=== PATIENT | female | born 1955 | race Caucasian/White ===

== ENCOUNTER 2025-07-08 10:28 | Outpatient (CLI) | payer MEDICARE, SELFPAY ==
--- NOTE | ~2025-07-08 | MMUS_ITS ---
EXAMINATION: MM diagnostic joao BI w theron, US breast RT limited HISTORY: Right breast discharge TECHNIQUE: 3-D tomosynthesis images of the breasts were performed and synthetic 2-D images were generated. CAD analysis was submitted and interpreted. High resolution limited right breast ultrasound was performed. COMPARISON: 01/01/2023, 04/28/2020 BREAST PARENCHYMAL COMPOSITION: There are scattered areas of fibroglandular density. FINDINGS: MAMMOGRAPHIC FINDINGS: Mammographic pattern of both breasts is unchanged. No suspicious mass lesion or distortion. No suspicious microcalcification. ULTRASOUND: Sonographic imaging of the right subareolar region is unremarkable. No mass, fluid collection, dilated ducts or intraductal mass is seen. IMPRESSION: No evidence for malignancy. No significant abnormalities are identified. BI-RADS Category 1: Negative Reviewed, dictated and finalized at [facility]. IMPRESSION: No evidence for malignancy. No significant abnormalities are identified. BI-RADS Category 1: Negative
--- OUTSIDE RECORDS SUMMARY | 2025-07-08 11:13 | XMS_ITS | Encounter Summary ---
Author Organization [facility] Address [address] [facility] [place] [address] Phone Care Team Providers Care Portrait Photographer Name Role Phone Sha Juan MD Primary Care Provider Arsh Nation MD Unavailable [phone] William Easton MD Unavailable Unavailable Reason for Visit * Reason Comments Medication Refill Encounter Details Date Type Department Care Team (Late st Contact Info) Description 10/26/2023 Refill [facility] - Primary Care - [place] [address] [place] [address] Sha Juan MD [address] [place] [address] Medication Refill Social History Tobacco Use Types Packs/Day Years Used Date Smoking Tobacco: Every Day Cigarettes 1 40 Smokeless Tobacco: Never Alcohol Use Standard Drinks/Week Comments No 0 (1 standard drink = 0.6 oz pur e alcohol) PHQ-2 Answer Date Recorded Total Score - Questions 1-9 0 01/2022 Sexually Active Control Partners Comments Not Currently Comments No Sex and Gender Information Value Date Recorded Sex Assigned at Not on file Legal Sex Female 8:33 PM CDT Gender Identity Not on file Sexual Orientation Not on file documented as of this encounter Miscellaneous Notes * Telephone Encounter - Ashley Gibbons RN - 10/28/2023 10:51 AM CST metoprolol tartrate (LOPRESSOR) 50 MG Tablet 180 Tablet 1 07/23/2023 -- Refill too soon NURSE documented in this encounter Plan of Treatment Upcoming Encounters Date Type Department Care Team (Late st Contact Info) Description 12/06/2025 10:00 AM UNIT NURSE Office Visit [facility] - Primary Care - [place] [address] [place] [address] Sha Juan MD [address] [place] [address] documented as of this encounter Visit Diagnoses Not on filedocumented in this encounter Additional Health Concerns Assessment Noted Time PHQ-9 Depression Total Score: 0 05/11/20 21 9:00 AM CDT documented as of this encounter Care Teams Portrait Photographer Relationship Specialty Start Date End Date Sha Juan MD [address] [place] [address] PCP - General Internal Medicine 03/24/18 Arsh Nation MD [address] [place] [address] Consulting Physician Obstetrics & Gynecology 03/26/19 William Eastno MD Consulting Physician Ophthalmology 12/01/24 documented as of this encounter
--- OUTSIDE RECORDS SUMMARY | 2025-07-08 11:13 | XMS_ITS | Encounter Summary ---
Author Organization [facility] Address [address] [facility] [place] [address] Phone Care Team Providers Care Guitar Player Name Role Phone Sha Juan MD Primary Care Provider Arsh Nation MD Unavailable [phone] William Easton MD Unavailable Unavailable Reason for Visit * Reason Comments Medication Refill Encounter Details Date Type Department Care Team (Late st Contact Info) Description 01/15/2024 Refill [facility] - Primary Care - [place] [address] [place] [address] Sha Juan MD [address] [place] [address] Medication Refill Social History Tobacco Use Types Packs/Day Years Used Date Smoking Tobacco: Every Day Cigarettes 1 40 Smokeless Tobacco: Never Alcohol Use Standard Drinks/Week Comments No 0 (1 standard drink = 0.6 oz pur e alcohol) PHQ-2 Answer Date Recorded Total Score - Questions 1-9 0 03/2024 Sexually Active Control Partners Comments Not Currently Comments No Sex and Gender Information Value Date Recorded Sex Assigned at Not on file Legal Sex Female 8:33 PM CDT Gender Identity Not on file Sexual Orientation Not on file documented as of this encounter Plan of Treatment Upcoming Encounters Date Type Department Care Team (Late st Contact Info) Description 12/06/2025 10:00 AM FOUNDATION RELATIONS MANAGER Office Visit [facility] - Primary Care - [place] [address] [place] [address] Sha Juan MD [address] [place] [address] documented as of this encounter Visit Diagnoses Not on filedocumented in this encounter Additional Health Concerns Assessment Noted Time PHQ-9 Depression Total Score: 0 11/22/19 10:57 AM FOUNDATION RELATIONS MANAGER documented as of this encounter Care Teams Guitar Player Relationship Specialty Start Date End Date Sha Juan MD [address] [place] [address] PCP - General Internal Medicine 03/24/18 Arsh Nation MD [address] [place] [address] Consulting Physician Obstetrics & Gynecology 03/26/19 William Easton MD Consulting Physician Ophthalmology 12/01/24 documented as of this encounter
--- OUTSIDE RECORDS SUMMARY | 2025-07-08 11:13 | XMS_ITS | Encounter Summary ---
Author Organization [facility] Address [address] [facility] [place] [address] Phone Care Team Providers Care Unionmelt Operator Name Role Phone Sha Juan MD Primary Care Provider Arsh Nation MD Unavailable [phone] William Easton MD Unavailable Unavailable Reason for Visit * Reason Comments Medication Refill Encounter Details Date Type Department Care Team (Late st Contact Info) Description 02/24/2023 Refill [facility] - Primary Care - [place] [address] [place] [address] Sha Juan MD [address] [place] [address] Medication Refill Social History Tobacco [...] Telephone Encounter - Ashley Gibbons RN - 02/25/2023 8:22 AM CDT gabapentin (NEURONTIN) 300 MG Capsule 90 Capsule 3 02/22/2023 refill too soon documented in this encounter Plan of Treatment Upcoming Encounters Date Type Department Care Team (Late st Contact Info) Description 12/06/2025 10:00 AM CIRCULAR SAW EDGE FUSER [facility] [place] [address] [place] [address] Sha Juan MD [address] [place] [address] documented as of this encounter Visit Diagnoses Not on filedocumented in this encounter Additional Health Concerns Assessment Noted Time PHQ-9 Depression Total Score: 0 05/11/20 21 9:00 AM CDT documented as of this encounter Care Teams Unionmelt Operator Relationship Specialty Start Date End Date Sha Juan MD [address] [place] [address] PCP - General Internal Medicine 03/24/18 Arsh Nation MD [address] [place] [address] Consulting Physician Obstetrics & Gynecology 03/26/19 William Easton MD Consulting Physician Ophthalmology 12/01/24 documented as of this encounter
--- OUTSIDE RECORDS SUMMARY | 2025-07-08 11:13 | XMS_ITS | Encounter Summary ---
Author Organization [facility] Address [address] [place] [address] Phone Care Team Providers Care Hydroelectric Plant Operator Name Role Phone Sha Juan MD Primary Care Provider Arsh Nation MD Unavailable [phone] William Easton MD Unavailable Unavailable Reason for Visit * Reason Comments Medication Refill Encounter Details Date Type Department Care Team (Late st Contact Info) Description 08/24/2021 [facility]ill [facility] Primary Care - [place] [address] [place] [address] Sha Juan MD [address] [place] [address] Medication Refill Social History Tobacco Use Types Packs/Day Years Used Date Smoking Tobacco: Every Day Cigarettes 2 40 Smokeless Tobacco: Never Alcohol Use Standard Drinks/Week Comments No 0 (1 standard drink = 0.6 oz pur e alcohol) PHQ-2 Answer Date Recorded Total Score - Questions 1-9 0 04/19 Sexually Active Control Partners Comments Not Currently Comments No Sex and Gender Information Value Date Recorded Sex Assigned at Not on file Legal Sex Female 8:33 PM CDT Gender Identity Not on file Sexual Orientation Not on file documented as of this encounter Miscellaneous Notes * Telephone Encounter - Ashley Gibbons RN - 08/24/2021 8:41 AM CDT glipiZIDE (GLUCOTROL XL) 5 MG TABLET SR 24 HR 90 Tablet 1 05/24/2021 Refill too soon documented in this encounter Plan of Treatment Upcoming Encounters Date Type Department Care Team (Late st Contact Info) Description 12/06/2025 10:00 AM HAIR SPECIALIST [facility] [place] [address] [place] [address] Sha Juan MD [address] [place] [address] documented as of this encounter Visit Diagnoses Not on filedocumented in this encounter Additional Health Concerns Assessment Noted Time PHQ-9 Depression Total Score: 0 05/11/20 21 9:00 AM CDT documented as of this encounter Care Teams Hydroelectric Plant Operator Relationship Specialty Start Date End Date Sha Juan MD [address] [place] [address] PCP - General Internal Medicine 03/24/18 Arsh Nation MD [address] [place] [address] Consulting Physician Obstetrics & Gynecology 03/26/19 William Easton MD Consulting Physician Ophthalmology 12/01/24 documented as of this encounter
--- OUTSIDE RECORDS SUMMARY | 2025-07-08 11:13 | XMS_ITS | Encounter Summary ---
Author Organization [facility] Address [address] [facility] [address] Phone Care Team Providers Care Bulk Station Operator Name Role Phone Sha Juan MD Primary Care Provider Arsh Nation MD Unavailable [phone] William Easton MD Unavailable Unavailable Reason for Visit * Reason Comments Medication Refill Encounter Details Date Type Department Care Team (Late st Contact Info) Description 01/26/2024 [facility]ill [facility] Primary Care - [place] [address] [place] [address] Sha Juan MD [address] [place] [address] Medication Refill Social History Tobacco [...] encounter Miscellaneous Notes * Telephone Encounter - Josue Shepard RN - 01/27/2024 8:49 AM CDT [facility] Medication Refill Standing Order for Pediatricand Adult Patients. Requested Prescriptions Pending Prescriptions Disp Refills glipiZIDE (GLUCOTROL XL) 5 MG TABLET SR 24 HR [Pharmacy Med Name: GLIPIZIDE ER 5MG TABLETS] 90 Tablet 1 Sig: TAKE 1 TABLET BY MOUTH DAILY Sulfonylureas Protocol Passed - 01/26/2024 1:24 PM Passed - Visit with relevant provider in past 6 months or upcoming 90 days Recent Visits Date Type Provider Dept 11/22/23 Office Visit Sha Juan MD [facility] Showing recent visits within past 182 days and meeting all other requirements Future Appointments No visits were found meeting these conditions. Showing future appointments within next 90 days and meeting all other requirements Passed - HgA1C on record in past 6 months HGB-A1C Date Value Ref Range Status 11/22/2023 5.7 4.0 - 6.0 % Final Passed - GFR on record in past 6 months GFR, EST. NONAFRICAN Date Value Ref Range Status 11/22/2023 >60 >=60 Final documented in this encounter Plan of Treatment Upcoming Encounters Date Type Department Care Team (Late st Contact Info) Description 12/06/2025 10:00 AM CRAB PICKER Office Visit [facility] - Primary Care - [place] [address] [place] [address] Sha Juan MD [address] [place] [address] documented as of this encounter Visit Diagnoses Diagnosis Type 2 diabetes mellitus without complication, without long-term current use of insulin documented in this encounter Additional Health Concerns Assessment Noted Time PHQ-9 Depression Total Score: 0 11/22/19 10:57 AM CRAB PICKER documented as of this encounter Care Teams Bulk Station Operator Relationship Specialty Start Date End Date Sha Juan MD [address] [place] [address] PCP - General Internal Medicine 03/24/18 Arsh Nation MD [address] [place] [address] Consulting Physician Obstetrics & Gynecology 03/26/19 William Easton MD Consulting Physician Ophthalmology 12/01/24 documented as of this encounter
--- OUTSIDE RECORDS SUMMARY | 2025-07-08 11:13 | XMS_ITS | Encounter Summary ---
Author Organization [facility] Address [address] [place] [address] Phone Care Team Providers Care Senior Examiner Name Role Phone Sha Juan MD Primary Care Provider Arsh Nation MD Unavailable [phone] William Easton MD Unavailable Unavailable Reason for Visit * Reason Comments Medication Refill Encounter Details Date Type Department Care Team (Late st Contact Info) Description 01/11/2023 Refill [facility] - Primary Care - [place] [address] [place] [address] Sha Juan MD [address] [place] [address] Medication Refill Social History Tobacco [...] on file Sexual Orientation Not on file COVID-19 Exposure Response Date Recorded In the last 10 days, have yo u been in contact with someone who was confirmed or suspected to have Coronavirus/COVID-19? No / Unsure 01/01/2023 11:28 AM CLAY TEMPERER documented as of this encounter Miscellaneous Notes * Telephone Encounter - April Larson RN - 01/14/2023 9:42 AM CST Duplicate request. TEMPERER documented in this encounter Plan of Treatment Upcoming Encounters Date Type Department Care Team (Late st Contact Info) Description 12/06/2025 10:00 AM CLAY TEMPERER Office Visit [facility] - Primary Care - [place] [address] [place] [address] Sha Juan MD [address] [place] [address] documented as of this encounter Visit Diagnoses Not on filedocumented in this encounter Additional Health Concerns Assessment Noted Time PHQ-9 Depression Total Score: 0 05/11/20 21 9:00 AM CDT documented as of this encounter Care Teams Senior Examiner Relationship Specialty Start Date End Date Sha Juan MD [address] [place] [address] PCP - General Internal Medicine 03/24/18 Arsh Nation MD [address] [place] [address] Consulting Physician Obstetrics & Gynecology 03/26/19 William Easton MD Consulting Physician Ophthalmology 12/01/24 documented as of this encounter
--- OUTSIDE RECORDS SUMMARY | 2025-07-08 11:13 | XMS_ITS | Encounter Summary ---
Author Organization [facility] Address [address] [facility] [place] [address] Phone Care Team Providers Care Student Financial Aid Manager Name Role Phone Sha Juan MD Primary Care Provider Arsh Nation MD Unavailable [phone] William Easton MD Unavailable Unavailable Reason for Visit * Reason Comments Medication Refill Encounter Details Date Type Department Care Team (Late st Contact Info) Description 12/29/2021 Refill [facility] Primary Care - [place] [address] [place] [address] Sha Juan MD [address] [place] [address] Medication Refill Social History Tobacco [...] Telephone Encounter - Ashley Gibbons RN - 12/29/2021 8:52 AM CST metoprolol tartrate (LOPRESSOR) 50 MG Tablet 180 Tablet 0 12/25/2021 Refill too soon NSTITCH SEAT JOINER documented in this encounter Plan of Treatment Upcoming Encounters Date Type Department Care Team (Late st Contact Info) Description 12/06/2025 10:00 AM CHAINSTITCH SEAT JOINER Office Visit [facility] - Primary Care - [place] [address] [place] [address] Sha Juan MD [address] [place] [address] documented as of this encounter Visit Diagnoses Not on filedocumented in this encounter Additional Health Concerns Assessment Noted Time PHQ-9 Depression Total Score: 0 05/11/20 21 9:00 AM CDT documented as of this encounter Care Teams Student Financial Aid Manager Relationship Specialty Start Date End Date Sha Juan MD [address] [place] [address] PCP - General Internal Medicine 03/24/18 Arsh Nation MD [address] [place] [address] Consulting Physician Obstetrics & Gynecology 03/26/19 William Easton MD Consulting Physician Ophthalmology 12/01/24 documented as of this encounter
--- OUTSIDE RECORDS SUMMARY | 2025-07-08 11:13 | XMS_ITS | Encounter Summary ---
Author Organization [facility] Address [address] [facility] [place] [address] Phone Care Team Providers Care Diesel Power Mechanic Name Role Phone Sha Juan MD Primary Care Provider Arsh Nation MD Unavailable [phone] William Easton MD Unavailable Unavailable Reason for Visit * Reason Comments Medication Refill Encounter Details Date Type Department Care Team (Late st Contact Info) Description 01/11/2021 Refill [facility] Primary Care - [place] [address] [place] [address] Sha Juan MD [address] [place] [address] Medication Refill Social History Tobacco Use Types Packs/Day Years Used Date Smoking Tobacco: Every Day Cigarettes 2 40 Smokeless Tobacco: Never Alcohol Use Standard Drinks/Week Comments No 0 (1 standard drink = 0.6 oz pur e alcohol) PHQ-2 Answer Date Recorded Total Score - Questions 1-9 19 02/2020 Sexually Active Control Partners Comments Not Currently Comments No Sex and Gender Information Value Date Recorded Sex Assigned at Not on file Legal Sex Female 8:33 PM CDT Gender Identity Not on file Sexual Orientation Not on file documented as of this encounter Miscellaneous Notes * Telephone Encounter - Josefa Ronquillo RN - 01/11/2021 4:14 PM MAIL CENSOR Medication approved and signed per standing order protocol. CENSOR documented in this encounter Plan of Treatment Upcoming Encounters Date Type Department Care Team (Late st Contact Info) Description 12/06/2025 10:00 AM MAIL CENSOR [facility] - Primary Care - [place] [address] [place] [address] Sha Juan MD [address] [place] [address] documented as of this encounter Visit Diagnoses Not on filedocumented in this encounter Additional Health Concerns Assessment Noted Time PHQ-9 Depression Total Score: 19 020 9:00 AM CDT documented as of this encounter Care Teams Diesel Power Mechanic Relationship Specialty Start Date End Date Sha Juan MD [address] [place] [address] PCP - General Internal Medicine 03/24/18 Arsh Nation MD [address] [place] [address] Consulting Physician Obstetrics & Gynecology 03/26/19 William Easton MD Consulting Physician Ophthalmology 12/01/24 documented as of this encounter
--- OUTSIDE RECORDS SUMMARY | 2025-07-08 11:13 | XMS_ITS | Encounter Summary ---
Author Organization [facility] Address [address] [facility] [place] [address] Phone Care Team Providers Care Autism Tutor Name Role Phone Sha Juan MD Primary Care Provider Arsh Nation MD Unavailable [phone] William Easton MD Unavailable Unavailable Reason for Visit * Reason Comments Medication Refill Encounter Details Date Type Department Care Team (Late st Contact Info) Description 03/30/2024 Refill [facility] - Primary Care - [place] [address] [place] [address] Sha Juan MD [address] [place] [address] Medication Refill Social History Tobacco [...] Telephone Encounter - Josue Shepard RN - 03/30/2024 4:02 PM CDT Medication(s) refilled and signed per [facility] Chronic Medication Refill Standing Order for Pediatricand Adult Patients. Requested Prescriptions Pending Prescriptions Disp Refills fenofibrate 160 MG Tablet [Pharmacy Med Name: FENOFIBRATE 160MG TABLETS] 90 Tablet 0 Sig: TAKE 1 TABLET BY MOUTH DAILY Fibrates Protocol Passed - 03/30/2024 3:49 PM Passed - Visit with relevant provider in past 12 months or upcoming 90 days Recent Visits Date Type Provider Dept 11/22/23 Office Visit Sha Juan MD [facility] 05/22/23 Office Visit Sha Juan MD [facility] Showing recent visits within past 365 days and meeting all other requirements Future Appointments No visits were found meeting these conditions. Showing future appointments within next 90 days and meeting all other requirements Passed - Lipid panel in past 12 months LDL Date Value Ref Range Status 11/22/2023 82 <130 mg/dL Final HDL CHOLESTEROL Date Value Ref Range Status 11/22/2023 29 (L) >40 mg/dL Final CHOLESTEROL Date Value Ref Range Status 11/22/2023 167 <200 mg/dL Final TRIGLYCERIDES Date Value Ref Range Status 11/22/2023 282 (H) <150 mg/dL Final VLDL Date Value Ref Range Status 11/22/2023 56 (H) 10 - 50 mg/dL Final CHOL/HDL RATIO Date Value Ref Range Status 11/22/2023 5.8 (H) 0.0 - 4.4 Final NON-HDL CHOLESTEROL Date Value Ref Range Status 11/22/2023 138 (H) <130 mg/dL Final documented in this encounter Plan of Treatment Upcoming Encounters Date Type Department Care Team (Late st Contact Info) Description 12/06/2025 10:00 AM RECEIVER Office Visit [facility] - Primary Care - [place] [address] [place] [address] Sha Juan MD [address] [place] [address] documented as of this encounter Visit Diagnoses Not on filedocumented in this encounter Additional Health Concerns Assessment Noted Time PHQ-9 Depression Total Score: 0 11/22/19 24 10:57 AM RECEIVER documented as of this encounter Care Teams Autism Tutor Relationship Specialty Start Date End Date Sha Juan MD [address] [place] [address] PCP - General Internal Medicine 03/24/18 Arsh Nation MD [address] [place] [address] Consulting Physician Obstetrics & Gynecology 03/26/19 William Easton MD Consulting Physician Ophthalmology 12/01/24 documented as of this encounter
--- OUTSIDE RECORDS SUMMARY | 2025-07-08 11:13 | XMS_ITS | Clinical Summary ---
Author Organization [facility]TER Address [address] [place] [address] Phone Care Team Providers Care Technical Recruiter Name Role Phone Sha Juan MD Primary Care Provider [phone] Arsh Nation MD Unavailable [phone] William Easton MD Unavailable Unavailable Allergies Active Allergy Reactions Criticality Noted Date Comments Atorvastatin Rash Latex Rash 03/28/2018 Adhesive latex Medications Cholecalcifer ol (VITAMIN D3 PO) Take by mouth daily. Active Cyanocobalami n (VITAMIN B12 PO) Take by mouth daily. Active Zinc 50 MG Capsule Take by mouth daily. Active gabapentin (NEURONTIN) 300 MG Capsule Take 1 Capsule by mouth daily. 90 Capsule 1 02/03/20 25 Active metoprolol tartrate (LOPRESSOR) 50 MG Tablet Take 1 Tablet by mouth 2 times daily. 180 Tablet 1 01/14/20 25 Active glipiZIDE (GLUCOTROL XL) 5 MG TABLET SR 24 HRIndications :Type 2 diabetes mellitus without complication, without long-term current use of insulin TAKE 1 TABLET BY MOUTH DAILY 90 Tablet 1 01/19/20 25 Active levothyroxine (SYNTHROID) 25 MCG Tablet TAKE 1 TABLET BY MOUTH DAILY 90 Tablet 1 02/02/20 25 Active metFORMIN (GLUCOPHAGE) 1000 MG Tablet TAKE 1 TABLET BY MOUTH TWICE DAILY WITH MEALS 180 Tablet 1 04/13/20 25 Active lovastatin (MEVACOR) 40 MG Tablet TAKE 1 TABLET BY MOUTH EVERY EVENING 90 Tablet 3 06/11/20 25 Active predniSONE (DELTASONE) 50 MG Tablet Take 1 Tablet by mouth daily. 5 Tablet 05/26/20 25 Active famotidine (PEPCID) 20 MG Tablet Take 1 Tablet by mouth 2 times daily as needed for Heartburn. 7 Tablet 05/26/20 25 Active EPINEPHrine (EPIPEN) 0.3 MG/0.3ML Solution Auto-injector 0.3 mL by Intramuscular route once as needed for Anaphylaxis for up to 1 dose. 0.3 mL 05/26/20 25 Active fenofibrate 160 MG Tablet TAKE 1 TABLET BY MOUTH DAILY 90 Tablet 1 07/01/20 25 Active fenofibrate 160 MG Tablet TAKE 1 TABLET BY MOUTH DAILY 90 Tablet 1 12/28/19 25 025 Discontinued Active Problems Problem Noted Date Diagnosed Date Arthritis 05/11/2021 Hypothyroidism due to acquired atrophy of thyroi d 11/18/2019 Irritable bowel syndrome wit h both constipation and diarrhea 09/18/2018 Mixed hyperlipidemia 03/28/2018 Diabetic peripheral neuropathy 03/28/2018 Type 2 diabetes mellitus wit hout complication, without long-term current use of insulin 11/18/2017 HUGGINS (nonalcoholic steatohepatitis) 05/14/2014 Overview (05/11/2021): Hepatic steatosis Hypertension, essential Resolved Problems Problem Noted Date Diagnosed Date Resolved Date Encounter for [facility] examination (Adult) 04/21/2020 04/21/2020 Rectal prolapse 09/21/2013 05/07/2018 Overview (05/07/2018): Overview: Rectal prolapse Encounters Date Type Department Care Team Description [facility] [place] [address] [place] [address] Sha Juan MD Medication Refill [facility]/03[facility] [address] [place] [address] Sha Juan MD 06/01/2025 1:20 PM CDT Lab [facility] [address] [place] [address] [facility], [address] [facility] Hypertension, essential; Type 2 diabetes mellitus without complication, without long-term current use of insulin; Mixed hyperlipidemia Discharge Disposition: Discharged to home or Selfcare 06/01/2025 11:00 AM CDT Office Visit [place] [address] [place] [id number] Sha Juan MD Hypertension, essential (Primary Dx); Mixed hyperlipidemia; Type 2 diabetes mellitus without complication, without long-term current use of insulin; Hypothyroidism due to acquired atrophy of thyroid; Diabetic peripheral neuropathy (HCC); Arthritis; Encounter for screening mammogram for breast cancer Discharge Disposition: Discharged to home or Selfcare 06/01/2025 Results Follow-Up [place] [address] [facility] [place] [address] Sha Juan MD CMP (COMPREHENSIVE METABOLIC PANEL), LIPID PANEL, HEMOGLOBIN A1C W/ ESTIMATED GLUCOSE 06/01/2025 Travel 05/26/2025 7:35 AM CDT - 05/26/2025 8:03 AM CDT Emergency [facility] Emergency [address] [place] [address] Derrick Zamora, Allergic reaction Discharge Disposition: Discharged to home or Selfcare 05/26/2025 Travel 04/27/2025 Refill [facility] [address] [place] [address] Sha Juan MD Medication Refill 04/13/2025 Refill [facility] [address] [place] [address] Sha Juan MD Medication Refill from Last 3 Months Immunizations Immunization Administration Dates Next Due Covid-19, Mrna, Lnp-s, PF, 1 00 mcg/0.5 mL Dose (Moderna) 02/07/2021,01/10/2021 Influenza Vaccine, Quadrivalent, PF 03/2024,11/09/2020,10/01/2019,09/18 Influenza, High-dose, Quadrivalent 10/09/2022, Influenza, Trivalent, Adjuvanted, PF 08/19/2024 Influenza,Split Virus,Trivalent,Injectable,PF 08/19/2024 Pneumococcal Vaccine Adult - 23 Valent 8 Pneumococcal conjugate PCV20 , polysaccharide [id number] conjugate, adjuvant, PF 05/22/2022 TDAP Vaccine 09/18/2018 Family History Medical History Relation Name Comments Chronic Obstructive Pulmonary Disease Father Diabetes Maternal Aunt Cancer Maternal Uncle 1 lung Cancer Maternal Uncle 2 lung Cancer Maternal Uncle 3 lung Alzheimer's Disease Mother Thyroid Disease Mother Cancer Other M cousin everywhere Relation Name Status Comments Father Maternal Aunt Maternal Uncle 1 Maternal Uncle 2 Maternal Uncle 3 Mother Other M cousin Social History Tobacco Use Types Packs/Day Years Used Date Smoking Tobacco: Every Day Cigarettes 1 40 Smokeless Tobacco: Never Tobacco Cessation:Ready to Q uit: No; Counseling Given: Yes Alcohol Use Standard Drinks/Week Comments No 0 (1 standard drink = 0.6 oz pur e alcohol) [facility] [employer] Answer Date Recorded In the past 12 months has Tagged, gas, oil, or water [employer] threatened to shut off services in your home? No 12/01/2024 Social Connection and Isolation Panel Answer Date Recorded In a typical week, how many times do you talk on the phone with family, friends, or neighbors? Three times a week 12/01/2024 How often do you get togethe r with friends or relatives? Three times a week 12/01/2024 How often do you attend chur ch or jew services? Never 12/01/2024 Do you belong to any clubs o r organizations such as buddhism groups, unions, fraternal or athletic groups, or school groups? No 12/01/2024 How often do you attend meet ings of the clubs or organizations you belong to? Never 12/01/2024 Are you , , di vorced, , never , or living with a partner? 12/01/2024 AUDIT-C Answer Date Recorded Q1: How often do you have a drink containing alcohol? Never 12/01/2024 Q2: How many drinks containi ng alcohol do you have on a typical day when you are drinking? Patient does not drink Q3: How often do you have si x or more drinks on one occasion? Never 12/01/2024 Overall Financial Resource Strain (CARDIA) Answe r Date Recorded How hard is it for you to pa y for the very basics like food, housing, medical care, and heating? Not hard at all 12/01/2024 PHQ-2 Answer Date Recorded Total Score - Questions 1-9 0 11/18 [facility] - Occupational Stress Questionnaire Answer Date Recorded Do you feel stress - tense, restless, nervous, or anxious, or unable to sleep at night because your mind is troubled all the time - these days? Not at all 12/01/2024 Exercise Vital Sign Answer Date Recorde d On average, how many days pe r week do you engage in moderate to strenuous exercise (like a brisk walk)? 0 days 12/01/2024 On average, how many minutes do you engage in exercise at this level? 0 min 12/01/2024 Hunger Vital Sign Answer Date Recorded Within the past 12 months, y ou worried that your food would run out before you got the money to buy more. Never true 12/01/19 25 Within the past 12 months, t he food you bought just didn't last and you didn't have money to get more. Never true 12/01/2024 PRAPARE - Transportation Answer Date Re corded In the past 12 months, has l ack of transportation kept you from medical appointments or from getting medications? No 11/18 In the past 12 months, has l ack of transportation kept you from meetings, work, or from getting things needed for daily living? No 12/01/2024 Housing Stability Vital Sign Answer Jaden e Recorded In the last 12 months, was t here a time when you were not able to pay the mortgage or rent on time? No 12/01/2024 Number of Times Moved in the Last Year Not on fi le 12/01/2024 At any time in the past 12 m [facility], were you homeless or living in a skilled nursing (including now)? No 12/01/2024 Sexually Active Control Partners Comments Not Currently Comments No Sex and Gender Information Value Date Recorded Sex Assigned at Not on file Legal Sex Female 8:33 PM CDT Gender Identity Not on file Sexual Orientation Not on file Last Filed Vital Signs Vital Sign Reading Time Taken Comments Blood Pressure 140/68 06/01/2025 11:09 AM CDT Pulse 72 06/01/2025 11:09 AM CDT Temperature 36.1 C (97 F) 06/01/2025 11:09 AM CDT Respiratory Rate 20 06/01/2025 11:09 AM CDT Oxygen Saturation 95% 06/01/2025 11:09 AM CDT Inhaled Oxygen Concentration - - Weight 70.6 kg (155 lb 9.6 oz) 06/01/2025 11:09 AM CDT Height 152.4 cm (5') 06/01/2025 11:09 AM CDT Body Mass Index 30.39 06/01/2025 11:09 AM CDT Plan of Treatment Upcoming Encounters Date Type Department Care Team (Late st Contact Info) Description 12/06/2025 10:00 AM WELL DRILL OPERATOR ROTARY DRILL Office Visit [facility] - [place] [address] [place] [address] Sha Juan MD [address] [place] [address] Health Maintenance Due Date Last Done Comments Diabetes: Foot Exam 1956 Cologuard 2001 Immunochemical Fecal Occult Blood 2001 Zoster Immunization (1 of 2) 2006 Respiratory Syncytial Virus (RSV) Immunization (Adult) (1 - Risk 60-74 years 1-dose series) 2016 Mammogram 01/01/2024 01/01/2023, 04/28/2020 SARS-COV-2 Immunization ( season) 2025 08/19/2024, 10/09/2022, 11/22/2021, Additional history exists Diabetes: Eye Exam 06/25/2025 06/25/2024, 05/25/2024 Influenza Immunization (#1) 2025 1012/2023, 08/19/2024, 11/22/2023, Additional history exists Diabetes: Hemoglobin A1c 12/02/2025 025, 12/01/2024, 05/27/2024, Additional history exists Lung Cancer Screening 01/05/2026 01/05/2025 Diabetes: Nephropathy Screening 06/01/2026 06/01/2025, 11/22/2023, 05/22/2023, Additional history exists DEXA Bone Density 01/05/2027 01/05/2025 Colonoscopy 03/20/2027 03/20/2022, 11/18, 09/04/2013 Colorectal Cancer Screening 03/20/2027 Td Immunization Every 10 Years (Adults With 1 Tdap) 09/18/2028 09/18/2018 Pneumococcal Immunization (50+ years) Completed 05/22/2022, 09/18/2018 Pneumococcal Immunization Combined Discontinued 05/22/2022, 09/18/2018 Hepatitis C Virus (HCV) Screening Completed 11/22/2023 Hepatitis B Immunization Aged Out No longer eligible based on patient's age to complete this topic Human Papillomavirus (HPV) Immunization Aged Out No longer eligible based on patient's age to complete this topic Meningococcal Immunization (ACWY) Aged Out No longer eligible based on patient's age to complete this topic Rotavirus Immunization Aged Out No lo nger eligible based on patient's age to complete this topic Procedures Procedure Name Priority Date/Time Associated Diagnosis Comments HEMOGLOBIN A1C W/ ESTIMATED GLUCOSE Routine 06/01/2025 11:38 AM CDT Type 2 diabetes mellitus without complication, without long-term current use of insulin LIPID PANEL Routine 06/01/2025 11:38 AM CDT Mixed hyperlipidemia Type 2 diabetes mellitus without complication, without long-term current use of insulin CMP (COMPREHENSIVE METABOLIC PANEL) Today 06/01/2025 11:38 AM CDT Hypertension, essential Type 2 diabetes mellitus without complication, without long-term current use of insulin BIB BONE DENSITOMETRY AXIAL SKELETON Routine 01/05/2025 11:22 AM WELL DRILL OPERATOR ROTARY DRILL Asymptomatic postmenopausal status Encounter for screening for osteoporosis CT CHEST SCREENING WO Routine 01/05/2025 10:57 AM WELL DRILL OPERATOR ROTARY DRILL Personal history of tobacco use, presenting hazards to health HM DILATED EYE EXAM 06/25/2024 1 2:00 AM CDT HEPATITIS C ANTIBODY Routine 11/22/2023 11:50 AM WELL DRILL OPERATOR ROTARY DRILL Encounter for hepatitis C screening test for low risk patient BIB SCREENING BILATERAL DIGITAL W CAD W JESSICA Routine 01/01/2023 12:01 PM WELL DRILL OPERATOR ROTARY DRILL Visit for screening mammogram from Last 3 Months or Most Recently Relevant to Health Maintenance Results * (ABNORMAL) HEMOGLOBIN A1C W/ ESTIMATED GLUCOSE (06/01/2025 11:38 AM CDT) HGB-A1C 7.1(H) 4.0 - 6.0 % 06/01/2025 1:14 PM CDT [facility] Est Average Glucose 157.1 mg/dL 06/01/2025 1:14 PM CDT [facility] Blood Venipuncture / Unknown 06/01/2025 11:38 AM CDT 06/01/2025 11:38 AM CDT Narrative [facility] - 06/01/2025 1:14 PM CDT HEMOGLOBIN A1C: DIABETIC PATIENTS: WELL-CONTROLLED: 6.2 - 7.0 INTERMEDIATE WELL-CONTROLLED: 7.0 - 9.0 POORLY-CONTROLLED: >9.0 Specimens containing greater than 5% of Hemoglobin F may result in lower than expected % HbA1C results. us Sha Juan MD CHEMISTRY ORDERABLES Traci don Result [facility] [address] [place] [address] * (ABNORMAL) LIPID PANEL (06/01/2025 11:38 AM CDT) CHOLESTEROL 170 <200 mg/dL 06/01/2025 1:05 PM CDT [facility] TRIGLYCERIDES 333(H) <150 mg/dL 06/01/2025 1:05 PM CDT [facility] HDL CHOLESTEROL 36(L) >40 mg/dL 1:05 PM CDT [facility] LDL 67 <130 mg/dL 06/01/2025 1:05 PM CDT [facility] VLDL 67(H) 10 - 50 mg/dL 06/01/2025 1:05 PM CDT [facility] CHOL/HDL RATIO 4.7(H) 0.0 - 4.4 06/01/2025 1:05 PM CDT [facility] NON-HDL CHOLESTEROL 134(H) <130 mg/dL 06/01/2025 1:05 PM CDT [facility] IS THE PATIENT REQUIRED TO BE FASTING? Yes 06/01/2025 1:05 PM CDT [facility] HAS THE PATIENT BEEN FASTING? Yes 06/01/2025 1:05 PM CDT [facility] Blood Venipuncture / Unknown 06/01/2025 11:38 AM CDT 06/01/2025 11:38 AM CDT us Sha Juan MD CHEMISTRY ORDERABLES Traci don Result [facility] [address] [place] [address] * (ABNORMAL) CMP (COMPREHENSIVE METABOLIC PANEL) (06/01/2025 11:38 AM CDT) SODIUM 142 136 - 145 mmol/L 06/01/2025 1:05 PM CDT [facility] POTASSIUM 3.9 3.5 - 5.1 mmol/L 06/01/2025 1:05 PM CDT [facility] CHLORIDE 103 98 - 107 mmol/L 06/01/2025 1:05 PM CDT [facility] CO2, VENOUS 29 22 - 30 mmol/L 06/01/2025 1:05 PM CDT [facility] ANION GAP 13.9 <18.0 mmol/L 06/01/2025 1:05 PM [facility] GLUCOSE 162(H) 70 - 99 mg/dL 06/01/2025 1:05 PM [facility] BUN 16 10 - 20 mg/dL 06/01/2025 1:05 PM [facility] CREATININE, BLOOD 0.73 0.60 - 1.00 mg/dL 06/01/2025 1:05 PM [facility] BUN/CREATININE RATIO 22(H) 12 - 20 ratio 06/01/2025 1:05 PM [facility] TOTAL PROTEIN 7.4 6.0 - 8.0 g/dL 06/01/2025 1:05 PM [facility] ALBUMIN 4.2 3.5 - 5.0 g/dL 06/01/2025 1:05 PM [facility] A/G RATIO 1.3 1.0 - 2.2 06/01/2025 1:05 PM [facility] CALCIUM 9.2 8.7 - 10.5 mg/dL 06/01/2025 1:05 PM [facility] T BILI 0.4 0.2 - 1.2 mg/dL 06/01/2025 1:05 PM [facility] SGOT (AST) 50(H) <43 U/L 06/01/2025 1:05 PM [facility] SGPT (ALT) 34 <56 U/L 06/01/2025 1:05 PM [facility] ALKALINE PHOSPHATASE 81 40 - 150 U/L 06/01/2025 1:05 PM [facility] IS THE PATIENT REQUIRED TO BE FASTING? No 06/01/2025 1:05 PM [facility] GFR, ESTIMATED >60 >=60 06/01/2025 1:05 PM [facility] Comment: Creatinine Clearance is the preferred criteria for selecting drug dose adjustments in renally impaired patients. The GFR is provided as additional pertinent clinical information. GFR is reported in mL/min/1.73 sq m. Calculation based on the Chronic Kidney Disease Epidemiology Collaboration (CKD- EPI) equation refit without adjustment for race. GFR, EST. >60 >=60 025 1:05 PM CDT [facility] GFR, EST. NONAFRICAN >60 >=60 06/01/2025 1:05 PM CDT [facility] Blood Venipuncture / Unknown 06/01/2025 11:38 AM CDT 06/01/2025 11:38 AM CDT us Sha Juan MD CHEMISTRY ORDERABLES Traci don Result [facility] [address] [place] [address] * BIB BONE DENSITOMETRY AXIAL SKELETON (01/05/2025 11:22 AM WELL DRILL OPERATOR ROTARY DRILL) Anatomical Region Laterality Modality BODY N/A Computed Radiogr aphy 01/05/2025 6:32 PM WELL DRILL OPERATOR ROTARY DRILL Impressions 01/05/2025 6:34 PM WELL DRILL OPERATOR ROTARY DRILL IMPRESSION: Normal bone mass. REFERENCE: Bone mineral density: T-Score: Normal (T-score above or = -1.0) Low bone mass (T-score between -1.0 and -2.5) replaces the previously used term osteopenia Osteoporosis (T-score = or below -2.5) Z-Score: Within the expected range for age (Z-score above -2.0) Below the expected range for age (Z-score is -2.0 or below) Please see below follow up recommendations. Medical evaluation for secondary causes of low bone mineral density may be appropriate. FRAX is a World Health Organization validated fracture risk assessment tool that calculates a person's 10 year probability of a major osteoporosis related fracture and hip fracture. According to the National Osteoporosis Foundation guidelines, postmenopausal women and men age 50 or older with low bone mass and a 10 year probability of a major osteoporosis related fracture = or greater than 20% or a 10 year probability of a hip fracture = or greater than 3% should be considered for pharmacological treatment for the prevention of osteoporosis. For further information, including treatment recommendations, please refer to the 2019 ISCD Official Positions (http://www.iscd.org) and the NOF's Clinician's Guide to Prevention and Treatment of Osteoporosis (http://www.nof.org/professionals/clinical-guidelines) Narrative 01/05/2025 6:34 PM WELL DRILL OPERATOR ROTARY DRILL EXAM DESCRIPTION: [facility] BONE DENSITOMETRY AXIAL SKELETON REASON FOR STUDY: 69 y/o year old F with given history of: Post menopausal status. History of parent with hip fracture. Personal history of smoking. 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 CLINICAL INFORMATION: Current height: 60 inches Maximum height: 60 inches Weight: 162.7 pounds Risk factors: Smoking and parent with hip fracture COMPARISON: None available FINDINGS: AP LUMBAR SPINE L1-L4: Total BMD is 1.204 g/cm2 T-score is 0.1 LEFT HIP: Total BMD is 1.169 g/cm2 T-score is 1.3 Femoral neck BMD is 1.023 g/cm2 T-score is -0.1 FRAX: FRAX not reported due to T-scores of hip, femoral neck and/or spine being at or above -1.0 (Normal). THIS IS AN ELECTRONICALLY VERIFIED FINAL REPORT 01/05/2025 6:32 PM - Electronically signed by Rachel Eller M.D. TW: TW Report ID: [id number] Reading Location: [id number] Procedure Note Rachel Eller MD - 01/05/2025 EXAM DESCRIPTION: [facility] BONE DENSITOMETRY AXIAL SKELETON REASON FOR STUDY: 69 y/o year old F with given history of: Post menopausal status. History of parent with hip fracture. Personal history of smoking. 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 CLINICAL INFORMATION: Current height: 60 inches Maximum height: 60 inches Weight: 162.7 pounds Risk factors: Smoking and parent with hip fracture COMPARISON: None available FINDINGS: AP LUMBAR SPINE L1-L4: Total BMD is 1.204 g/cm2 T-score is 0.1 LEFT HIP: Total BMD is 1.169 g/cm2 T-score is 1.3 Femoral neck BMD is 1.023 g/cm2 T-score is -0.1 FRAX: FRAX not reported due to T-scores of hip, femoral neck and/or spine being at or above -1.0 (Normal). THIS IS AN ELECTRONICALLY VERIFIED FINAL REPORT 01/05/2025 6:32 PM - Electronically signed by Rachel Eller M.D. TW: TW Report ID: [id number] Reading Location: [id number] IMPRESSION: Normal bone mass. REFERENCE: Bone mineral density: T-Score: Normal (T-score above or = -1.0) Low bone mass (T-score between -1.0 and -2.5) replaces the previously used term osteopenia Osteoporosis (T-score = or below -2.5) Z-Score: Within the expected range for age (Z-score above -2.0) Below the expected range for age (Z-score is -2.0 or below) Please see below follow up recommendations. Medical evaluation for secondary causes of low bone mineral density may be appropriate. FRAX is a World Health Organization validated fracture risk assessment tool that calculates a person's 10 year probability of a major osteoporosis related fracture and hip fracture. According to the National Osteoporosis Foundation guidelines, postmenopausal women and men age 50 or older with low bone mass and a 10 year probability of a major osteoporosis related fracture = or greater than 20% or a 10 year probability of a hip fracture = or greater than 3% should be considered for pharmacological treatment for the prevention of osteoporosis. For further information, including treatment recommendations, please refer to the 2019 ISCD Official Positions (http://www.iscd.org) and the NOF's Clinician's Guide to Prevention and Treatment of Osteoporosis (http://www.nof.org/professionals/clinical-guidelines) us Sha Juan MD IMG DEXA ORDERABLES Final Result * CT CHEST SCREENING WO (01/05/2025 10:57 AM WELL DRILL OPERATOR ROTARY DRILL) Anatomical Region Laterality Modality Chest N/A Computed Tomogra phy 01/08/2025 11:0 2 AM WELL DRILL OPERATOR ROTARY DRILL Impressions 01/08/2025 11:05 AM WELL DRILL OPERATOR ROTARY DRILL IMPRESSION: 1. Multiple lung nodules measuring up to 5 mm. 2. Mildly enlarged precarinal mediastinal lymph node. Attention on follow-up. 3. Splenomegaly. Lung-RADS category 2S: Benign appearance or behavior. Finding other than a pulmonary nodule which is potentially clinically significant. Recommendation: Low dose Screening CT of chest in 12 months. Narrative 01/08/2025 11:05 AM WELL DRILL OPERATOR ROTARY DRILL EXAM DESCRIPTION: CT CHEST SCREENING WO REASON FOR STUDY: Screening CT of the chest in a current smoker with a 60 pack year smoking history. Additional history: None. TECHNIQUE: Low dose CT scan of the chest was performed without intravenous contrast using helical scanning technique. The exam extends from the lung apices through the lung bases. Automatic exposure control was used as a dose optimization technique. NOTE: This study was performed for the specific purposes of lung cancer screening and is not an alternative to diagnostic chest CT. RADIATION DOSE: CT dose index volume (CTDIvol) = 3.62 mGy COMPARISON: None FINDINGS: SMOKING RELATED LUNG DISEASE: Minimal upper lobe emphysema. LUNG NODULES: Left apical 4 mm solid lung nodule (series 5, image 29). 3 mm anterior right upper lobe nodule (76). 4 mm lateral left lower lobe nodule (124). 3 mm right middle lobe nodule, possibly a calcified granuloma (119). A few nodules along the right minor fissure measuring up to 4 mm (101). Medial right lower lobe 4 mm subpleural nodule (82). 5 mm right lower lobe subpleural nodule (102). This appears to containing small peripheral calcification and may represent a developing granuloma. CORONARY ARTERY CALCIFICATION: Severe, predominantly affecting the LAD. OTHER: Left lower lobe calcified lung granuloma. Scarring within the right middle lobe. No focal consolidation, pneumothorax, or pleural effusion. The central airways are clear. No mediastinal mass. No axillary lymphadenopathy. Calcified left hilar node consistent with prior granulomatous disease. Mildly enlarged precarinal mediastinal node measuring 1.2 cm in short axis (series 2, image 82). The heart is normal in size. No pericardial effusion. Mild atherosclerotic calcifications of the thoracic aorta. No thoracic aortic aneurysm. No acute fractures or suspicious osseous lesions. The visualized upper abdomen is normal. THIS IS AN ELECTRONICALLY VERIFIED FINAL REPORT 01/08/2025 11:02 AM - Electronically signed by Davie Lopez M.D. KR: KR Report ID: [id number] Reading Location: [place] [address] Procedure Note Davie Lopez MD - 01/08/2025 EXAM DESCRIPTION: CT CHEST SCREENING WO REASON FOR STUDY: Screening CT of the chest in a current smoker with a 60 pack year smoking history. Additional history: None. TECHNIQUE: Low dose CT scan of the chest was performed without intravenous contrast using helical scanning technique. The exam extends from the lung apices through the lung bases. Automatic exposure control was used as a dose optimization technique. NOTE: This study was performed for the specific purposes of lung cancer screening and is not an alternative to diagnostic chest CT. RADIATION DOSE: CT dose index volume (CTDIvol) = 3.62 mGy COMPARISON: None FINDINGS: SMOKING RELATED LUNG DISEASE: Minimal upper lobe emphysema. LUNG NODULES: Left apical 4 mm solid lung nodule (series 5, image 29). 3 mm anterior right upper lobe nodule (76). 4 mm lateral left lower lobe nodule (124). 3 mm right middle lobe nodule, possibly a calcified granuloma (119). A few nodules along the right minor fissure measuring up to 4 mm (101). Medial right lower lobe 4 mm subpleural nodule (82). 5 mm right lower lobe subpleural nodule (102). This appears to containing small peripheral calcification and may represent a developing granuloma. CORONARY ARTERY CALCIFICATION: Severe, predominantly affecting the LAD. OTHER: Left lower lobe calcified lung granuloma. Scarring within the right middle lobe. No focal consolidation, pneumothorax, or pleural effusion. The central airways are clear. No mediastinal mass. No axillary lymphadenopathy. Calcified left hilar node consistent with prior granulomatous disease. Mildly enlarged precarinal mediastinal node measuring 1.2 cm in short axis (series 2, image 82). The heart is normal in size. No pericardial effusion. Mild atherosclerotic calcifications of the thoracic aorta. No thoracic aortic aneurysm. No acute fractures or suspicious osseous lesions. The visualized upper abdomen is normal. THIS IS AN ELECTRONICALLY VERIFIED FINAL REPORT 01/08/2025 11:02 AM - Electronically signed by Davie Lopez M.D. KR: PALLAVI Report ID: [id number] Reading Location: [place] [address] IMPRESSION: 1. Multiple lung nodules measuring up to 5 mm. 2. Mildly enlarged precarinal mediastinal lymph node. Attention on follow-up. 3. Splenomegaly. Lung-RADS category 2S: Benign appearance or behavior. Finding other than a pulmonary nodule which is potentially clinically significant. Recommendation: Low dose Screening CT of chest in 12 months. Sha Juan MD IMG CT ORDERABLES Final R esult * HM DILATED EYE EXAM (06/25/2024 12:00 AM CDT) 06/25/2024 Provider Scan PROCEDURE/MINOR SURGICAL ORDERAB LES Final Result SCAN * HEPATITIS C ANTIBODY (11/22/2023 11:50 AM WELL DRILL OPERATOR ROTARY DRILL) hepatitis C antibody 0.07 <1 S/CO [facility] ARCH [id number] B 11/22/2023 10:43 PM WELL DRILL OPERATOR ROTARY DRILL [facility] Comment: Signal/Cutoff ratio < 0.79 is Nondetected Signal/Cutoff ratio 0.80-0.99 is Grayzone Signal/Cutoff ratio > 0.99 is Detected Supplemental assays are recommended if signal/cutoff ratio is >/=1.00. Signal/cutoff ratio result >/= 5.00 is 97% predictive of positivity for recombinant immunoblot assay (RIBA) and will be reported to the [place] [facility] as required. Blood Venipuncture / Unknown 11/22/2023 11:50 AM WELL DRILL OPERATOR ROTARY DRILL 11/22/2023 12:39 PM WELL DRILL OPERATOR ROTARY DRILL Sha Juan MD CHEMISTRY ORDERABLES Traci l Result [facility] [address] [place] [address], [place] * BIB SCREENING BILATERAL DIGITAL W CAD W JESSICA (01/01/2023 12:01 PM WELL DRILL OPERATOR ROTARY DRILL) Anatomical Region Laterality Modality breast Bilateral Mammography 01/01/2023 11:3 2 AM WELL DRILL OPERATOR ROTARY DRILL Narrative 01/02/2023 9:04 AM WELL DRILL OPERATOR ROTARY DRILL - BIB SCREENING BILATERAL DIGITAL W CAD W JESSICA BILATERAL DIGITAL SCREENING MAMMOGRAM 3D/2D WITH CAD WITH MEDIOLATERAL OBLIQUE CRANIOCAUDAL: 01/01/2023 The study was acquired using digital technology and interpreted from soft copy. Current study was also evaluated with ICAD version 7.2. 2D digital mammographic views, as well as 3D digital tomosynthesis were performed in the CC and MLO projections. CLINICAL: Routine screening. Patient has no complaints. No personal history of cancer. No family history of breast cancer. COMPARISONS: Comparison is made to exam dated: 04/28/2020 [facility]. BREAST TISSUE:There are scattered fibroglandular densities in both breasts. FINDINGS: No significant masses, calcifications, or other findings are seen in either breast. There has been no significant interval change. IMPRESSION: BI-RAD 1 NEGATIVE There is no mammographic evidence of malignancy. A 1 year screening mammogram is recommended. A letter will be sent to the patient with these results. The patient will be entered into a reminder system with a target due date of 1 year for her next screening exam. Electronically signed by: Trev leyva/griffin:01/01/2023 18:15:22 Keycase Assembler(s): RT Rosie(R)(M), [facility] letter sent: Normal Exam Reading location: [place] BI-RADS: 1 Negative Procedure Note Trev Owen MD - 01/02/2023 - BIB SCREENING BILATERAL DIGITAL W CAD W JESSICA BILATERAL DIGITAL SCREENING MAMMOGRAM 3D/2D WITH CAD WITH MEDIOLATERAL OBLIQUE CRANIOCAUDAL: 01/01/2023 The study was acquired using digital technology and interpreted from soft copy. Current study was also evaluated with ICAD version 7.2. 2D digital mammographic views, as well as 3D digital tomosynthesis were performed in the CC and MLO projections. CLINICAL: Routine screening. Patient has no complaints. No personal history of cancer. No family history of breast cancer. COMPARISONS: Comparison is made to exam dated: 04/28/2020 [facility]. BREAST TISSUE:There are scattered fibroglandular densities in both breasts. FINDINGS: No significant masses, calcifications, or other findings are seen in either breast. There has been no significant interval change. IMPRESSION: BI-RAD 1 NEGATIVE There is no mammographic evidence of malignancy. A 1 year screening mammogram is recommended. A letter will be sent to the patient with these results. The patient will be entered into a reminder system with a target due date of 1 year for her next screening exam. Electronically signed by: Trev leyva/griffin:01/01/2023 18:15:22 Keycase Assembler(s): RT Rosie(R)(M), [facility] letter sent: Normal Exam Reading location: [facility] [place] [place] BI-RADS: 1 Negative us Sha Juan MD IMG MAMMO ORDERABLES Traci l Result from Last 3 Months or Most Recently Relevant to Health Maintenance Insurance MEDICARE C [facility] Care Teams Technical Recruiter Relationship Specialty Start Date End Date Sha Juan MD [address] [place] [address] PCP - General Internal Medicine 03/24/18 Arsh Nation MD [address] [place] [id number] Consulting Physician Obstetrics & Gynecology 03/26/19 William Easton MD Consulting Physician Ophthalmology 12/01/24
--- OUTSIDE RECORDS SUMMARY | 2025-07-08 11:13 | XMS_ITS | Encounter Summary ---
Author Organization [facility] Address [address] [place] [address] Phone Care Team Providers Care Architectural Renderer Name Role Phone Sha Juan MD Primary Care Provider Arsh Nation MD Unavailable [phone] William Easton MD Unavailable Unavailable Reason for Visit * Reason Comments Medication Refill Encounter Details Date Type Department Care Team (Late st Contact Info) Description 12/26/2021 Refill [facility] - Primary Care - [place] [address] [place] [address] Sha Juan MD [address] [place] [address] Medication Refill Social History Tobacco [...] Telephone Encounter - Ashley Gibbons RN - 12/27/2021 8:30 AM CST metFORMIN (GLUCOPHAGE) 1000 MG Tablet 180 Tablet 0 12/19/2021 Refill too soon OTYPE OPERATOR documented in this encounter Plan of Treatment Upcoming Encounters Date Type Department Care Team (Late st Contact Info) Description 12/06/2025 10:00 AM COMPOTYPE OPERATOR Office Visit [facility] - Primary Care - [place] [address] [place] [address] Sha Juan MD [address] [place] [address] documented as of this encounter Visit Diagnoses Not on filedocumented in this encounter Additional Health Concerns Assessment Noted Time PHQ-9 Depression Total Score: 0 05/11/20 21 9:00 AM CDT documented as of this encounter Care Teams Architectural Renderer Relationship Specialty Start Date End Date Sha Juan MD [address] [place] [address] PCP - General Internal Medicine 03/24/18 Arsh Nation MD [address] [place] [address] Consulting Physician Obstetrics & Gynecology 03/26/19 William Easton MD Consulting Physician Ophthalmology 12/01/24 documented as of this encounter
--- OUTSIDE RECORDS SUMMARY | 2025-07-08 11:13 | XMS_ITS | Encounter Summary ---
Author Organization [facility] Address [address] [facility] [address] [place] [address] Phone Care Team Providers Care Productivity Engineer Name Role Phone Sha Juan MD Primary Care Provider Arsh Nation MD Unavailable [phone] William Easton MD Unavailable Unavailable Reason for Visit * Reason Comments Medication Refill Encounter Details Date Type Department Care Team (Late st Contact Info) Description 04/09/2022 Refill [facility] - Primary Care - [place] [address] [place] [address] Sha Juan MD [address] [place] [address] Medication Refill Social History Tobacco [...] suspected to have Coronavirus/COVID-19? No / Unsure 03/20/2022 6:08 AM CDT documented as of this encounter Miscellaneous Notes * Telephone Encounter - Radha Wu RN - 04/10/2022 7:55 AM CDT Refill request too soon. documented in this encounter Plan of Treatment Upcoming Encounters Date Type Department Care Team (Late st Contact Info) Description 12/06/2025 10:00 AM SUPERVISOR COMPOUNDING AND FINISHING Office [facility] - [facility] Care - [place] [address] [place] [address] Sha Juan MD [address] [place] [address] documented as of this encounter Visit Diagnoses Not on filedocumented in this encounter Additional Health Concerns Assessment Noted Time PHQ-9 Depression Total Score: 0 05/11/20 21 9:00 AM CDT documented as of this encounter Care Teams Productivity Engineer Relationship Specialty Start Date End Date Sha Juan MD [address] [place] [address] PCP - General Internal Medicine 03/24/18 Arsh Nation MD [address] [place] [address] Consulting Physician Obstetrics & Gynecology 03/26/19 William Easton MD Consulting Physician Ophthalmology 12/01/24 documented as of this encounter
--- OUTSIDE RECORDS SUMMARY | 2025-07-08 11:13 | XMS_ITS | Encounter Summary ---
Author Organization [facility] Address [address] [facility] [place] [address] Phone Care Team Providers Care Surgical Services Assistant Name Role Phone Sha Juan MD Primary Care Provider Arsh Nation MD Unavailable [phone] William Easton MD Unavailable Unavailable Reason for Visit * Reason Comments Medication Refill Encounter Details Date Type Department Care Team (Late st Contact Info) Description 08/19/2021 Refill [facility] - Primary Care - [place] [address] [place] [address] Sha Juan MD [address] [place] [address] Medication Refill Social History Tobacco [...] st Contact Info) Description 12/06/2025 10:00 AM DIAL REFINISHER Office Visit [facility] - Primary Care - [place] [address] [place] [address] Sha Juan MD [address] [place] [address] documented as of this encounter Visit Diagnoses Not on filedocumented in this encounter Additional Health Concerns Assessment Noted Time PHQ-9 Depression Total Score: 0 05/11/20 21 9:00 AM CDT documented as of this encounter Care Teams Surgical Services Assistant Relationship Specialty Start Date End Date Sha Juan MD [address] [place] [address] PCP - General Internal Medicine 03/24/18 Arsh Nation MD [address] [place] [address] Consulting Physician Obstetrics & Gynecology 03/26/19 William Easton MD Consulting Physician Ophthalmology 12/01/24 documented as of this encounter
--- OUTSIDE RECORDS SUMMARY | 2025-07-08 11:13 | XMS_ITS | Encounter Summary ---
Author Organization [facility] Address [address] [facility] [place] [address] Phone Care Team Providers Care Transfer Professor Name Role Phone Sha Juan MD Primary Care Provider Arsh Nation MD Unavailable [phone] William Easton MD Unavailable Unavailable Reason for Visit * Reason Comments Medication Refill Encounter Details Date Type Department Care Team (Late st Contact Info) Description 05/03/2024 Refill [facility] - Primary Care - [place] [address] [place] [address] Sha Juan MD [address] [place] [address] Medication Refill Social History Tobacco [...] Telephone Encounter - Josue Shepard RN - 05/04/2024 8:50 AM CDT Medication(s) refilled and signed per [facility] Chronic Medication Refill Standing Order for Pediatricand Adult Patients. Requested Prescriptions Pending Prescriptions Disp Refills metoprolol tartrate (LOPRESSOR) 50 MG Tablet [Pharmacy Med Name: METOPROLOL TARTRATE 50MG TABLETS] 180 Tablet 0 Sig: TAKE 1 TABLET BY MOUTH TWICE DAILY Beta-Blockers Protocol Passed - 05/03/2024 9:17 AM Passed - BP on record in the past year Clinician-entered: BP Readings from Last 3 Encounters: 11/22/23 140/80 06/30/23 142/76 05/22/23 146/64 Patient-entered: No data recorded Passed - Visit with relevant provider in past 12 months or upcoming 90 days Recent Visits Date Type Provider Dept 11/22/23 Office Visit Sha Juan MD [facility] 05/22/23 Office Visit Sha Juan MD [facility] Showing recent visits within past 365 days and meeting all other requirements Future Appointments No visits were found meeting these conditions. Showing future appointments within next 90 days and meeting all other requirements documented in this encounter Plan of Treatment Upcoming Encounters Date Type Department Care Team (Late st Contact Info) Description 12/06/2025 10:00 AM BLUE LINE HANGER Office Visit [facility] - Primary Care - [place] [address] [place] [address] Sha Juan MD [address] [place] [address] documented as of this encounter Visit Diagnoses Not on filedocumented in this encounter Additional Health Concerns Assessment Noted Time PHQ-9 Depression Total Score: 0 11/22/19 24 10:57 AM BLUE LINE HANGER documented as of this encounter Care Teams Transfer Professor Relationship Specialty Start Date End Date Sha Juan MD [address] [place] [address] PCP - General Internal Medicine 03/24/18 Arsh Nation MD [address] [place] [address] Consulting Physician Obstetrics & Gynecology 03/26/19 William Easton MD Consulting Physician Ophthalmology 12/01/24 documented as of this encounter
--- OUTSIDE RECORDS SUMMARY | 2025-07-08 11:13 | XMS_ITS | Encounter Summary ---
Author Organization [facility] Address [address] [place] [address] Phone Care Team Providers Care Telephone Clerk Telegraph Office Name Role Phone Sha Juan MD Primary Care Provider Arsh Nation MD Unavailable [phone] William Easton MD Unavailable Unavailable Reason for Visit * Reason Comments Medication Refill Encounter Details Date Type Department Care Team (Late st Contact Info) Description 07/24/2022 Refill [facility] - Primary Care - [place] [address] [place] [address] Sha Juan MD [address] [place] [address] Medication Refill Social History Tobacco [...] Telephone Encounter - Radha Wu RN - 07/24/2022 1:11 PM CDT Duplicate order. documented in this encounter Plan of Treatment Upcoming Encounters Date Type Department Care Team (Late st Contact Info) Description 12/06/2025 10:00 AM REHABILITATION CLERK Office [facility] - Primary Care - [place] [address] [place] [address] Sha Juan MD [address] [place] [address] documented as of this encounter Visit Diagnoses Not on filedocumented in this encounter Additional Health Concerns Assessment Noted Time PHQ-9 Depression Total Score: 0 05/11/20 21 9:00 AM CDT documented as of this encounter Care Teams Telephone Clerk Telegraph Office Relationship Specialty Start Date End Date Sha Juan MD [address] [place] [address] PCP - General Internal Medicine 03/24/18 Arsh Nation MD [address] [place] [address] Consulting Physician Obstetrics & Gynecology 03/26/19 William Easton MD Consulting Physician Ophthalmology 12/01/24 documented as of this encounter
--- OUTSIDE RECORDS SUMMARY | 2025-07-08 11:13 | XMS_ITS | Encounter Summary ---
Author Organization [facility] Address [address] [facility] [place] [address] Phone Care Team Providers Care Travelers' Aid Worker Name Role Phone Sha Juan MD Primary Care Provider Arsh Nation MD Unavailable [phone] William Easton MD Unavailable Unavailable Reason for Visit * Reason Comments Medication Refill Encounter Details Date Type Department Care Team (Late st Contact Info) Description 08/23/2023 Refill [facility] - Primary Care - [place] [address] [place] [address] Sha Juan MD [address] [place] [address] Medication Refill Social History Tobacco [...] Telephone Encounter - Ashley Gibbons RN - 08/23/2023 3:50 PM CDT levothyroxine (SYNTHROID) 25 MCG Tablet 90 Tablet 1 05/20/2023 Refill too soon documented in this encounter Plan of Treatment Upcoming Encounters Date Type Department Care Team (Late st Contact Info) Description 12/06/2025 10:00 AM PRIMARY SCHOOL PRINCIPAL Office Visit [facility] - Primary Care - [place] [address] [place] [address] Sha Juan MD [address] [place] [address] documented as of this encounter Visit Diagnoses Not on filedocumented in this encounter Additional Health Concerns Assessment Noted Time PHQ-9 Depression Total Score: 0 05/11/20 21 9:00 AM CDT documented as of this encounter Care Teams Travelers' Aid Worker Relationship Specialty Start Date End Date Sha Juan MD [address] [place] [address] PCP - General Internal Medicine 03/24/18 Arsh Nation MD [address] [place] [address] Consulting Physician Obstetrics & Gynecology 03/26/19 William Easton MD Consulting Physician Ophthalmology 12/01/24 documented as of this encounter
--- OUTSIDE RECORDS SUMMARY | 2025-07-08 11:13 | XMS_ITS | Encounter Summary ---
Author Organization [facility] Address [address] [place] [address] Phone Care Team Providers Care Housekeeper Nanny Name Role Phone Sha Juan MD Primary Care Provider Arsh Nation MD Unavailable [phone] William Easton MD Unavailable Unavailable Reason for Visit * Reason Comments Medication Refill Encounter Details Date Type Department Care Team (Late st Contact Info) Description 11/29/2020 Refill [facility] - Primary Care - [place] [address] [place] [address] Sha Juan MD [address] [place] [address] Medication Refill Social History Tobacco [...] Exposure Response Date Recorded In the last month, have you been in contact with someone who was confirmed or suspected to have Coronavirus / COVID-19? No / Unsure 11/09/2020 9:19 AM CEMENT FINISHING SUPERVISOR documented as of this encounter Miscellaneous Notes * Telephone Encounter - Josefa Ronquillo RN - 11/29/2020 3:58 PM CEMENT FINISHING SUPERVISOR Medication approved and signed per standing order protocol. NT FINISHING SUPERVISOR documented in this encounter Plan of Treatment Upcoming Encounters Date Type Department Care Team (Late st Contact Info) Description 12/06/2025 10:00 AM CEMENT FINISHING SUPERVISOR Office Visit [facility] - Primary Care - [place] [address] [place] [address] Sha Juan MD [address] [place] [address] documented as of this encounter Visit Diagnoses Not on filedocumented in this encounter Additional Health Concerns Assessment Noted Time PHQ-9 Depression Total Score: 020 9:00 AM CDT documented as of this encounter Care Teams Housekeeper Nanny Relationship Specialty Start Date End Date Sha Juan MD [address] [place] [address] PCP - General Internal Medicine 03/24/18 Arsh Nation MD [address] [place] [address] Consulting Physician Obstetrics & Gynecology 03/26/19 William Easton MD Consulting Physician Ophthalmology 12/01/24 documented as of this encounter
== END 2025-07-08 10:29 | disposition home or self-care (01) ==
LOC: ANHFOHIMG 10:35
PROVIDERS: PCP Internal Medicine; Visit Provider Internal Medicine
DX: N64.52 Nipple discharge (principal)
CPT/HCPCS: 76642; 77062; 77066; G0279